=== PATIENT | male | born 1965 | race Caucasian/White ===

== ENCOUNTER 2017-06-04 23:10 | Emergency (ER) | payer OTHER ==
[2017-06-04 23:14] VITALS: BP 150/96; PULSE 71; TEMP 36.7; O2SAT 97
[2017-06-04] MEDS ORDERED: METH4PAK PO (23:40)
--- NOTE | 2017-06-04 23:41 | EMERGENCY ROOM VISIT NOTE ---
History First contact with patient: 23:21 Chief Complaint: SKIN PROBLEM Stated Complaint: POISON TYE History of Present Illness The patient is a 51 year old male who presents to the Emergency Room with complaints of an itchy rash on his skin. The patient states that he has red bumps on his right arm, left forearm and right leg. He states it is very itchy and rates his discomfort a 5/10. The rash started 2-3 days ago after he was outside working. He states he has had poison tye in the past and this feels similar. He denies any new medications. He is not taking anything for the symptoms. He denies any new lotions, detergents or soaps. Review of Systems A complete 10 point review of systems was reviewed with the patient with pertinent positives and negatives as per history of present illness. All else were negative. Past Medical/Surgical History Medical Problems: (1) No significant active problems Family History No significant family history Social History Smoking Status: Unknown if Ever Smoked Alcohol Use: occasionally Marital Status: Housing Status: lives with family Occupation Status: employed Current/Historical Medications Scheduled Methylprednisolone (Medrol Dosepak), 0 PO DAILY Physical Exam Vital Signs Date Time Temp Pulse Resp B/P (MAP) Pulse Ox O2 Delivery O2 Flow Rate FiO2 06/04/17 23:14 36.7 71 16 150/96 97 Room Air Physical Exam VITALS: Vitals are noted on the nurse's note and reviewed by myself. Vital signs stable. GENERAL: This is a 51-year-old male, in no acute distress, nondiaphoretic, well- developed well-nourished. SKIN: There are multiple erythematous, raised areas to the right upper arm, left forearm and right thigh with linear distribution consistent with a poison tye dermatitis. EARS: External auditory canals clear, tympanic membranes pearly georges without erythema or effusion bilaterally. EYES: Pupils equal round and reactive to light and accommodation. MOUTH: Mucous membranes moist. Tonsils are not enlarged. Pharynx without erythema or exudate. HEART: Regular rate and rhythm without murmurs gallops or rubs. LUNGS: Clear to auscultation bilaterally without wheezes, rales or rhonchi. NEURO: Patient was alert and oriented to person place and time. Medical Decision & Procedures Medications Administered Medications (Trade) Dose Ordered Sig/Hang Route Start Time Stop Time Status Last Admin Dose Admin Diphenhydramine HCl (Benadryl Cap) 50 mg NOW STAT PO 06/04/17 23:36 06/04/17 23:39 DC 06/04/17 23:43 50 MG Medical Decision Differential diagnosis includes allergic reaction, contact dermatitis, poison tye dermatitis, among others. The patient was evaluated as above. Exam is consistent with a contact dermatitis/poison tye dermatitis. Patient was given Benadryl for symptomatic improvement here. He will be placed on a Medrol Dosepak to start in the morning. He was instructed to use Benadryl as needed for symptoms. He verbalized understanding of my assessment and treatment plan and was discharged home in good condition. Medication Reconcilliation Current Medication List: was personally reviewed by me Blood Pressure Screening Patient's blood pressure: Elevated blood pressure Blood pressure disposition: Elevated BP felt to be situational Impression Primary Impression: Contact dermatitis Departure Information Dispostion Home / Self-Care Condition GOOD Prescriptions Methylprednisolone (MEDROL DOSEPAK) 4 Mg Kenneth 0 PO DAILY, #1 PKT Prov: Nuha Howell ., [place] 06/04/17 Referrals No Doctor, Assigned (PCP) Patient Instructions My [facility] Additional Instructions You should take Benadryl (diphenhydramine) 25-50 mgs every 6 hours as needed for itching. You can find this medicine [id number]. Benadryl can help reduce your symptoms. You should take it for the next 3 days or until your symptoms have subsided. Be aware that Benadryl can make you drowsy. You have been prescribed a Medrol Dosepak. This is a steroid which will help decrease your inflammation, redness, and itch. Take the medicine as prescribed. Take the ENTIRE 6 day course of the steroids. Follow-up with your primary care provider if your rash persists or worsens. Return to the emergency department with any worsening or new/concerning symptoms.
== END 2017-06-04 23:53 | disposition home or self-care (01) ==
LOC: C.EDB 23:12
DX: L23.7 Allergic contact dermatitis due to plants, except food (principal)

== ENCOUNTER 2017-06-13 21:44 | Emergency (ER) | payer OTHER ==
[~2017-06-13] VITALS: Ht 182.9 cm; Wt 113.7 kg
[~2017-06-13 21:44] MED LIST: METH4PAK PO
[2017-06-13 21:51] VITALS: TEMP 36.9; Ht 182.9 cm; Wt 113.7 kg
[2017-06-13] MEDS ORDERED: CALAMINE/PRAMOXINE LOTION 177 APPLN/177 ML BTL EXT STA (22:09)
--- NOTE | 2017-06-13 22:13 | EMERGENCY ROOM VISIT NOTE ---
History Report prepared by Judy: Obi Zamora Under the Supervision of: Dr. Michi Stanford M.D. First contact with patient: 21:55 Chief Complaint: RASH Stated Complaint: HERE 2WKS AGO FOR POISON MARK HAS GOTTEN WORSE History of Present Illness The patient is a 51 year old male who presents to the Emergency Room with complaints of a worsening, itchy, rash beginning two to three weeks ago. The patient states his rash is still located on his armpits, lower abdomen, and inner thighs and it has not spread. He reports he was evaluated in the ED two weeks ago and was given steroids. The patient notes he has not finished the prednisone yet. He states he believes it is from poison mark from when he was cleaning around his house. He states did not see any green plants or alondra, but there were bushes around the house. The patient reports he did not use lotions yet. He notes he did not go back outside after this happened. The patient states he washed the clothes he was wearing, but he has not washed his boots yet. He reports he has continued to wear his boots. The patient denies fevers, chills, nausea, vomiting, diarrhea, and itching in the mouth. He notes he had similar symptoms five years ago, and he burnt them off his chest. Source of History: patient Onset: two to three weeks ago Position: other (armpits, lower abdomen, and inner thighs) Quality: other (itchy rash) Timing: worsening Associated Symptoms: No fevers, No chills, No nausea, No vomiting Review of Systems See HPI for pertinent positives and negatives. A total of ten systems were reviewed and were otherwise negative. Past Medical & Surgical Medical Problems: (1) No significant active problems Family History No significant family history Social History Smoking Status: Never Smoker Alcohol Use: occasionally Marital Status: Housing Status: lives with family Occupation Status: employed Current/Historical Medications Scheduled Pramoxine-Calamine (Caladryl), 1 APPLN TOP QID Scheduled PRN Loratadine (Claritin), 1 TAB PO DAILY PRN for Itching Allergies Coded Allergies: No Known Allergies (Unverified , 06/13/17) Physical Exam Vital Signs Date Time Temp Pulse Resp B/P (MAP) Pulse Ox O2 Delivery O2 Flow Rate FiO2 06/13/17 22:29 69 20 155/91 96 4/1/18 21:51 36.9 69 20 155/91 96 Room Air Physical Exam GENERAL: Awake, alert, well-appearing, in no distress HENT: Normocephalic, atraumatic. Oropharynx unremarkable. EYES: Normal conjunctiva. Sclera non-icteric. NECK: Supple. No nuchal rigidity. FROM. No JVD. RESPIRATORY: Clear to auscultation. CARDIAC: Regular rate, normal rhythm. Extremities warm and well perfused. Pulses equal. ABDOMEN: Soft, non-distended. No tenderness to palpation. No rebound or guarding. No masses. RECTAL: Deferred. MUSCULOSKELETAL: Chest examination reveals no tenderness. The back is symmetrical on inspection without obvious abnormality. There is no CVA tenderness to palpation. No joint edema. LOWER EXTREMITIES: Calves are equal size bilaterally and non-tender. No edema. No discoloration. NEURO: Normal sensorium. No sensory or motor deficits noted. SKIN: No jaundice noted. Scattered areas of raised, blanched erythema in his bilateral axillary regions, upper chest, lower abdomen, and inner thighs - no warmth or discharge noted. Medical Decision & Procedures Medications Administered Medications (Trade) Dose Ordered Sig/Hang Route Start Time Stop Time Status Last Admin Dose Admin Calamine/Pramoxine (Caladryl Lotion) 1 appln NOW STAT EXT 06/13/17 22:09 06/13/17 22:12 DC 06/13/17 22:09 1 APPLN Loratadine (Claritin Tab) 10 mg NOW ONCE PO 06/13/17 22:15 06/13/17 22:16 DC 06/13/17 22:26 10 MG ED Course 220: The patient was evaluated in room C09. A complete history and physical exam was performed. I discussed the results of the physical exam and the treatment plan with the patient and his family. They verbalized complete agreement and understanding. The patient is ready for discharge. Medical Decision I reviewed the patient's past medical history, medications, and the nursing notes as described above. Differential diagnosis: Etiologies such as contact dermatitis, viral exanthem, urticaria, allergic reaction, Rodriguez-Jonathan syndrome, toxic epidermal necrolysis, erythema multiforme, cellulitis, scabies, HSV, varicella, zoster, eczema, staph scalded skin syndrome, fungal infection, as well as others were entertained. The patient is a 51-year-old gentleman who presents emergency department with persistent rash believed to be poison mark after being seen in the emergency department 1 week prior placed on a steroid taper per hpi. The patient is well- appearing, no acute distress, afebrile stable vital signs. On exam the patient has scattered areas of raised blanchable erythema without any warmth or tenderness. Findings consistent with a contact dermatitis. Given the patient has no oral pharyngeal involvement no indication to extend the patient's prednisone taper. Will treat with topical Caladryl lotion and antihistamines for pruritus. The patient was encouraged to follow-up and establish care with a primary care doctor. Findings and plan for follow-up reviewed with patient. Patient agreeable and d/c'd per discharge instructions. Medication Reconcilliation Current Medication List: was personally reviewed by me Blood Pressure Screening Patient's blood pressure: Elevated blood pressure Blood pressure disposition: Elevated BP felt to be situational Impression Primary Impression: Contact dermatitis Scribe Attestation The scribe's documentation has been prepared under my direction and personally reviewed by me in its entirety. I confirm that the note above accurately reflects all work, treatment, procedures, and medical decision making performed by me. Departure Information Dispostion Home / Self-Care Prescriptions Loratadine (CLARITIN) 10 Mg Tab 1 TAB PO DAILY Y for Itching for 30 Days, #30 TAB Prov: Michi Stanford M.D. 06/13/17 Pramoxine-Calamine (CALADRYL) 1 Lot Lot 1 APPLN TOP QID for 14 Days, #1 TUBE Apply to affected area as often as needed Prov: Michi Stanford M.D. 06/13/17 Referrals No Doctor, Assigned (PCP) Forms HOME CARE DOCUMENTATION FORM, IMPORTANT VISIT INFORMATION, WORK / SCHOOL INSTRUCTIONS Patient Instructions ED Dermatitis Contact, ED Dermatitis Poison Mark, My [facility], Poison Mark [place] Avoid Additional Instructions Please follow up with and establish care with a primary care physician in the next week for re-evaluation. Your symptoms are likely due to a contact dermatitis/poison mark as previously determined. Otherwise, your exam did not show signs of an emergent condition at this time. Apply Caladryl lotion as often as needed to help with symptoms of itching and also help to dry out and heal the areas. Claritin daily for itching as needed. Drink plenty of fluids to ensure hydration. Return to the emergency department for worsening symptoms as described in the accompanying instructions.
[2017-06-13] MEDS ORDERED: LORATADINE 10 MG TAB PO ONE (22:15)
[2017-06-13] MEDS ORDERED: LORA10TA6 PO (22:16)
[2017-06-13] MEDS ORDERED: PRAM10LO TOP (22:16)
[2017-06-13 22:29] VITALS: BP 155/91; PULSE 69; O2SAT 96
== END 2017-06-13 22:30 | disposition home or self-care (01) ==
LOC: C.EDB 21:45 → C.EDC 22:30
DX: L25.9 Unspecified contact dermatitis, unspecified cause (principal)